=== PATIENT | male | born 1965 | race African-American/Black ===

== ENCOUNTER 2018-03-23 19:56 | Emergency (ER) | payer BC ==
[2018-03-23] MEDS ORDERED: Ondansetron ODT 4 MG TAB ONE (20:00)
--- NOTE | 2018-03-23 20:36 | RAD ---
LEFT THUMB THREE VIEW 03/23/18 HISTORY: Laceration. COMPARISON: None. FINDINGS: Soft tissue laceration along the volar aspect of the thumb distal phalanx with an associated comminut ed fracture of the tuft. There appears to be a radiopaque foreign object within the volar soft tissue s of the second digit proximal phalanx. IMPRESSION: 1. Comminuted minimally displaced fracture with laceration thumb distal phalanx. 2. Curvilinear radiopaque foreign object measuring 4 x 2 mm in the volar soft tissues of the sec ond digit proximal phalanx. POS: JENNA
[2018-03-23] MEDS ORDERED: HYDROcodone/Acetaminophen 10/325 mg Tablet ONE (21:22)
[2018-03-23] MEDS ORDERED: Adacel (T-DAP) 0.5 ML VIAL ONE (22:11)
== END 2018-03-23 22:48 | disposition home or self-care (01) ==
LOC: ERS 19:56
DX: S62.522B Displaced fracture of distal phalanx of left thumb, initial encounter for open fracture (principal); S61.012A Laceration without foreign body of left thumb without damage to nail, initial encounter; W23.0XXA Caught, crushed, jammed, or pinched between moving objects, initial encounter
CPT/HCPCS: 12002; 90471; 90715; Q0162